=== PATIENT | male | born 1950 | race Asian ===

== ENCOUNTER 2020-12-14 08:43 | Day surgery (SDC) | payer OTHER, SELFPAY ==
[~2020-12-14] VITALS: Ht 152.4 cm; Wt 61.7 kg
[2020-12-14] MEDS ORDERED: LIDOCAINE 2% 100 MG/5 ML UJET TP ONE (10:17)
[2020-12-14] MEDS ORDERED: fentaNYL citrate 0.05 MG/ML VIAL ONE (10:17)
[2020-12-14] MEDS ORDERED: fentaNYL citrate 0.05 MG/ML VIAL IVP ONE (12:35)
== END 2020-12-14 13:00 | disposition home or self-care (01) ==
LOC: MDS 08:43 → MFCC 08:45 → MDS 13:00
PROVIDERS: ATTEND Internal Medicine Gastroenterology
DX: Z12.11 Encounter for screening for malignant neoplasm of colon (principal)
CPT/HCPCS: 87426; G0121; J3010